=== PATIENT | male | born 1945 ===

== ENCOUNTER 2021-12-03 13:12 | Emergency (ER) | payer OTHER ==
[~2021-12-03] VITALS: Ht 175.3 cm; Wt 83.9 kg
[~2021-12-03 13:12] MED LIST: DYMISTA NASAL S23 GM NS; FLONASE16 G1 NS; ZYRTEC10 MG PO
[2021-12-03] MEDS ORDERED: ATENOLOL50 MG PO (13:24)
[2021-12-03] MEDS ORDERED: NORVASC5 MG PO (13:25)
[2021-12-03] MEDS ORDERED: TRAMADOL HCL50 MG PO (13:25)
[2021-12-03] MEDS ORDERED: RELAFEN DS1000 MG PO (13:26)
== END 2021-12-03 15:35 | disposition home or self-care (01) ==
LOC: ER 13:12
DX: U07.1 COVID-19 (principal); I10 Essential (primary) hypertension; Z88.6 Allergy status to analgesic agent